=== PATIENT | male | born 1945 | race Caucasian/White ===

== ENCOUNTER 2020-04-01 16:48 | Emergency (ER) | payer MEDICARE ==
[2020-04-01] MEDS ORDERED: Lidocaine 1% 20 ML MDV INJECT ONE (18:26)
[2020-04-01] MEDS ORDERED: Bacitracin Oint 28.35 GM Tube TOP ONE (18:27)
--- NOTE | 2020-04-01 18:33 | EDM.PDOC ---
ED HPI GENERAL MEDICAL PROBLEM - General Chief Complaint: Laceration Stated Complaint: FELL AND HIT BACK OF HEAD Time Seen by Provider: 04/01/20 18:28 Source of Information: Reports: Patient History Limitations: Reports: No Limitations - History of Present Illness INITIAL COMMENTS - FREE TEXT/NARRATIVE: pt arrived with a laceration on the back of his head. He fell on the ice and rang his to. He was able to get up by himself. He has a mild headache but no other neuro symptoms. Heis about 4 hours since the injury. He is not on blood thinners other than asa baby qod. Onset: Today, Sudden Duration: Hour(s): Location: Reports: Head, Other (pt has a laceration) Associated Symptoms: Reports: Other (mild headache) - Related Data Allergies Allergy/AdvReac Type Severity Reaction Status Date / Time Ffsafee-Hrz-Ips Reductase Allergy Body Aches Verified 04/01/20 17:08 Inhibitor Home Meds: Home Meds . [Unable to Verify Home Med List] 04/01/20 [History] Past Medical History - Past Health History Medical/Surgical History: Denies Medical/Surgical History Musculoskeletal History: Reports: Back Pain, Chronic - Past Surgical History GI Surgical History: Reports: Cholecystectomy Social & Family History - Tobacco Use Tobacco Use Status *Q: Never Tobacco User ED ROS GENERAL - Review of Systems Review Of Systems: See Below Constitutional: Reports: No Symptoms HEENT: Reports: Other ( blow to the head with a laceration) Respiratory: Reports: No Symptoms Cardiovascular: Reports: No Symptoms Endocrine: Reports: No Symptoms GI/Abdominal: Reports: No Symptoms : Reports: No Symptoms Musculoskeletal: Reports: No Symptoms Skin: Reports: No Symptoms Neurological: Reports: No Symptoms ED EXAM, SKIN/RASH Exam: See Below Text/Narrative:: pt fell on the ice and hit the back of his head. He was dazed but was able to g et up by himself. He did end up with a laceration on the back of his head. Exam Limited By: No Limitations General Appearance: Alert, No Apparent Distress, Other (pt is about 4 hours from the fall. He has a mild headache but no other symptoms. Pupils are equal and reactive. ) Ears: Normal TMs Nose: Normal Inspection Throat/Mouth: Normal Inspection Head: Other (pt has a 2 inch laceration ragged on the back of his head. ) Neck: Normal Inspection Respiratory/Chest: No Respiratory Distress Cardiovascular: Regular Rate, Rhythm GI/Abdominal: Soft, Non-Tender Course - Vital Signs Last Recorded V/S: Last Vital Signs Temp 36.4 C 04/01/20 17:15 Pulse 105 H 04/01/20 17:15 Resp 16 04/01/20 17:15 BP 186/90 H 04/01/20 17:15 Pulse Ox 93 L 04/01/20 17:15 - Orders/Labs/Meds Meds: Medications Discontinued Medications Generic Name Dose Route Start Last Admin Trade Name Lashawn PRN Reason Stop Dose Admin Bacitracin 1 gm 04/01/20 18:27 Bacitracin Oint TOP 04/01/20 18:28 TID ONE Bacitracin 1 dose 04/01/20 18:35 Bacitracin Oint 1 Gm TOP 04/01/20 18:36 ONETIME ONE Lidocaine HCl 20 ml 04/01/20 18:26 04/01/20 18:34 Xylocaine 1% INJECT 04/01/20 18:27 20 ml ONETIME ONE Administration - Re-Assessments/Exams Free Text/Narrative Re-Assessment/Exam: 04/01/20 18:53 pt was found to have a burst type laceration 2 inches in length on the occipital area. The area was infiltrated with lidocaine and cleansed well. It was sutureed tightly with 3-0 ethilon,. bacatracin was appl;ied and a pressure dressing. Departure - Departure Time of Disposition: 18:51 Disposition: Home, Self-Care 01 Condition: Fair Clinical Impression: Laceration of scalp - Discharge Information Referrals: Luisito Potter MD [Primary Care Provider] - Forms: ED Department Discharge Care Plan Goals: pressure dressing leave on tonight then it can be open to air, head injury sheet-- pt is not on blood thinner. suture removal in 7-8 days. Keep dry until suture removal. rtc if any further problems. Sepsis Event Note (ED) - Evaluation Sepsis Screening Result: No Definite Risk - Focused Exam Vital Signs: Vital Signs Temp Pulse Resp BP Pulse Ox 04/01/20 17:15 36.4 C 105 H 16 186/90 H 93 L 04/01/20 17:06 36.4 C 105 H 16 186/90 H 93 L
[2020-04-01] MEDS ORDERED: Bacitracin Oint 1 GM U/D Packet TOP ONE (18:35)
== END 2020-04-01 19:21 | disposition home or self-care (01) ==
LOC: JP.ED 16:48
DX: S01.01XA Laceration without foreign body of scalp, initial encounter (principal); Z88.8 Allergy status to other drugs, medicaments and biological substances; W00.0XXA Fall on same level due to ice and snow, initial encounter
CPT/HCPCS: 12002; 99282; J2001